=== PATIENT | female | born 1935 | race Caucasian/White ===

== ENCOUNTER 2024-02-11 09:47 | Emergency (ER) | payer MEDICARE ==
[~2024-02-11] VITALS: Ht 167.6 cm; Wt 65.8 kg
[~2024-02-11 09:47] MED LIST: NORVASC10 MG
[2024-02-11 10:03] VITALS: BP 135/65
[2024-02-11] MEDS ORDERED: Ondansetron Hydrochloride 4 MG TAB PO ONE (10:15)
[2024-02-11 10:49] LABS: ACT PARTIAL THROMBO TIME 27.1 SECONDS (20.0-32.1)
[2024-02-11 10:50] LABS: BASO % 0.4 % (0.0-1.0); EOS % 0.2 % (1.0-4.0); HEMATOCRIT 40.2 % (37.0-47.0); LYMPH # 2.4 10*3/uL (1.3-4.4); LYMPH % 23.9 % (27.0-41.0); MEAN CELL VOLUME 83.8 fl (81.0-99.0); MEAN CORPUSCULAR HGB 27.7 pg (27.0-31.0); MEAN CORPUSCULAR HGB CONC 33.1 g/dl (33.0-37.0); MEAN PLATELET VOLUME 9.9 fl (9.6-12.3); MONO # 0.6 10*3/uL (0.1-1.0); MONO % 5.8 % (3.0-9.0); NEUT # 7.1 10*3/uL (2.3-7.9); NEUT % 69.4 % (47.0-73.0); PLATELET COUNT AUTOMATED 291 10*3/uL (130-400); RED CELL DISTRI WIDTH 13.2 % (0-14.5); WHITE BLOOD COUNT 10.2 10*3/uL (4.8-10.8)
[2024-02-11 10:55] LABS: ALKALINE PHOSPHATASE 86 U/L (46-116); BUN 9 mg/dl (9-23); CHLORIDE 93 mmol/L (98-107); LIPASE 45 U/L (12-53); SGPT/ALT 16 U/L (5-49)
[2024-02-11 12:19] LABS: BILIRUBIN Negative (Negative); BLOOD Negative (Negative); CLARITY Clear (Clear); COLOR Yellow (Yellow); GLUCOSE Negative (Negative); KETONE Negative (Negative); LEUKO ESTERASE Negative (Negative); NITRITE Negative (Negative); PH 7.5 (4.5-8.0); UROBILINOGEN 0.2 E.U./dl (0.0-1.0)
[2024-02-11 12:46] LABS: BACTERIA 1+
[2024-02-11] MEDS ORDERED: PROTONIX40 MG PO (13:25)
[2024-02-11] MEDS ORDERED: ONDANSETRON4 MG SL (13:25)
== END 2024-02-11 13:33 | disposition home or self-care (01) ==
LOC: ED 09:47
PROVIDERS: Emergency Medicine
DX: K21.9 Gastro-esophageal reflux disease without esophagitis (principal); Z20.822 Contact with and (suspected) exposure to COVID-19; R11.0 Nausea; R05.9 Cough, unspecified; R53.1 Weakness; Z90.11 Acquired absence of right breast and nipple; R10.2 Pelvic and perineal pain

== ENCOUNTER → 2024-03-03 | Outpatient (CLI) | payer MEDICARE ==
[~2024-03-03] MED LIST changes: +ONDANSETRON4 MG SL; +PROTONIX40 MG PO
== END | disposition home or self-care (01) ==
LOC: US 13:48
PROVIDERS: ATTEND Family Medicine
DX: M71.22 Synovial cyst of popliteal space [Baker], left knee (principal); R60.0 Localized edema